=== PATIENT | male | born 1985 | race Caucasian/White ===

== ENCOUNTER → 2016-10-13 | Outpatient (CLI) | payer OTHER ==
[~2016-10-13] MED LIST: AMOXICILLIN PO; ANTIVERT12.5 MG PO; DIAZEPAM PO; DICLOFENAC PO; FIORICET1 TAB; FLEXERIL PO; FLEXERIL10 MG PO; IBUPROFEN PO; MEDROL4 MG/DOSE-; MEDROL4 MG/DOSE- PO; MUCINEX D ER T1 EACH PO; MUCINEX100 MG/5 M; NAPROXEN PO; NO MEDICATIONS; ROBITUSSIN ALL118 ML PO; SUDAFED PLUS PO; VICODIN 5/500 T1 TAB PO; VOLTAREN75 MG PO; ZOFRAN ODT4 MG; [UNRECOGNIZED DRUG - OTHER]
--- NOTE | ~2016-10-13 | CR58 ---
[facility]. [facility] A Service of [facility] & [facility] RADIOLOGY TEXT RESULTS PATIENT: FRANNY DOVER LOCATION: [facility] : 87 UNIT #: [id number] AGE: [address]: VELMA DOUGHERTY APRN SEX: M ORDER DR: [id number] [address] [address] [id number] O MR#: [id number] Acc #: [id number] NAME: FRANNY DOVER : 1985 SEX: M STUDY DATE/TIME: 10/13/2016 12:56 UNIT: [facility] ROOM: STUDY DESCRIPTION: CR Cervical Spine 2 or 3 Views Attending Physician: Velma Dougherty Aprn Referring Physician: Velma Dougherty Aprn Ordering Physician: Velma Dougherty Aprn Primary Care Physician: Maricarmen Witt M.D. MEDICAL IMAGING REPORT This report is preliminary unless electronic signature is present. EXAM Cervical spine 3 views INDICATIONS Shoulder pain and neck pain for 2 weeks. COMPARISON STUDIES No comparisons. FINDINGS Vertebral heights, alignment and disc spaces are maintained. The odontoid is intact and the lateral masses well aligned. IMPRESSION Negative. Dictated by... Mazin Seay M.D. THIS IS AN ELECTRONICALLY VERIFIED REPORT Mazin Seay M.D. at 10/15/2016 7:23 AM ARS/pcl TD: 10/13/2016 18:05 JOB #: [id number] MEDICAL IMAGING REPORT Page 1 of 1
--- NOTE | ~2016-10-13 | CR243 ---
[facility]. [facility] A Service of [facility] & [facility] RADIOLOGY TEXT RESULTS PATIENT: FRANNY DOVER LOCATION: [facility] : 86 UNIT #: [id number] AGE: [address]: VELMA DOUGHERTY APRN SEX: M ORDER DR: [id number] [address] [address] [id number] O MR#: [id number] Acc #: [id number] NAME: FRANNY DOVER : 1985 SEX: M STUDY DATE/TIME: 10/13/2016 12:56 UNIT: [facility] ROOM: STUDY DESCRIPTION: CR Thoracic Spine 3 Views Attending Physician: Velma Dougherty Aprn Referring Physician: Velma Dougherty Aprn Ordering Physician: Velma Dougherty Aprn Primary Care Physician: Maricarmen Witt M.D. MEDICAL IMAGING REPORT This report is preliminary unless electronic signature is present. EXAM Thoracic spine 3 views INDICATIONS Back pain for 2 weeks. COMPARISON STUDIES No comparisons. FINDINGS Vertebral body heights, alignment and disc spaces are preserved. IMPRESSION Negative. Dictated by... Mazin Seay M.D. THIS IS AN ELECTRONICALLY VERIFIED REPORT Mazin Seay M.D. at 10/15/2016 7:23 AM ARS/rené TD: 10/13/2016 18:03 JOB #: [id number] MEDICAL IMAGING REPORT Page 1 of 1
--- NOTE | ~2016-10-13 | CR230 ---
[facility]. [facility] A Service of [facility] & [facility] RADIOLOGY TEXT RESULTS PATIENT: FRANNY DOVER LOCATION: [facility] : 86 UNIT #: [id number] AGE: [address]: VELMA DOUGHERTY APRN SEX: M ORDER DR: [id number] O MR#: [id number] Acc #: [id number] NAME: FRANNY DOVER : 1985 SEX: M STUDY DATE/TIME: 10/13/2016 12:56 UNIT: [facility] ROOM: STUDY DESCRIPTION: CR Shoulder Min 2 View Rt Attending Physician: Velma Dougherty Aprn Referring Physician: Velma Dougherty Aprn Ordering Physician: Velma Dougherty Aprn Primary Care Physician: Maricarmen Witt M.D. MEDICAL IMAGING REPORT This report is preliminary unless electronic signature is present. EXAM Right shoulder 3 views INDICATIONS Right shoulder pain for 2 weeks. COMPARISON STUDIES No comparisons. FINDINGS Joint spaces preserved. No fracture or dislocation. IMPRESSION Negative. Dictated by... Mazin Seay M.D. THIS IS AN ELECTRONICALLY VERIFIED REPORT Mazin Seay M.D. at 10/15/2016 7:23 AM ARS/pcl TD: 10/13/2016 18:04 JOB #: [id number] MEDICAL IMAGING REPORT Page 1 of 1
== END | disposition home or self-care (01) ==
LOC: SRAD 12:37
DX: M54.2 Cervicalgia (principal); M54.6 Pain in thoracic spine; M25.511 Pain in right shoulder
CPT/HCPCS: 72040; 72072; 73030

== ENCOUNTER → 2016-11-10 | Outpatient (CLI) | payer OTHER ==
--- NOTE | ~2016-11-10 | MR32 ---
[facility] A Service of [facility] & [facility] RADIOLOGY TEXT RESULTS PATIENT: FRANNY DOVER LOCATION: [facility] : 87 UNIT #: [id number] AGE: [address]: Saw Guerrero MD SEX: M ORDER DR: [id number] [facility] [address] [place], [place] [address] [id number] O MR#: [id number] Acc #: [id number] NAME: FRANNY DOVER : 1985 SEX: M STUDY DATE/TIME: 11/10/2016 18:48 UNIT: [facility] ROOM: STUDY DESCRIPTION: MR Cervical Wo Contrast Attending Physician: Saw Guerrero M.D. Referring Physician: Saw Guerrero M.D. Ordering Physician: Saw Guerrero M.D. Primary Care Physician: Velma Montenegro Aprn MRI CENTER REPORT This report is preliminary unless electronic signature is present. EXAM Cervical MRI. HISTORY Neck pain radiating into the left arm and hand with numbness beginning early September 2016. TECHNIQUE Multiplanar imaging of the cervical spine was performed with short and long TR. FINDINGS Alignment is satisfactory. At C3-4, there is central disc protrusion that contacts the ventral cord in the midline. Central stenosis is moderate. The other cervical discs are normal. There is a short segment central cord syrinx at C7. Maximum diameter of the syrinx is about 2 mm. It extends over a length of 1.5 cm. It is likely incidental, however, should be further worked up with postcontrast imaging to make sure there is no evidence of adjacent cord enhancement. No paraspinous masses are seen. No marrow edema is noted. IMPRESSION 1. Mild midcervical degenerative disc disease with a small central disc protrusion at C3-4 causing moderate canal narrowing and contacting the ventral cord at the midline. 2. No evidence of a discrete disc herniation and no exiting nerve root compression is seen. 3. Small central cord syrinx at C7. Recommend the patient return for postcontrast imaging to evaluate for enhancing lesions in the cord associated with the syrinx. It is likely an incidental asymptomatic cord syrinx. [facility]. [facility] A Service of [facility] & [facility] RADIOLOGY TEXT RESULTS PATIENT: FRANNY DOVER LOC[facility]: [facility] : 86 UNIT #: [id number] AGE: [address]: Saw Guerrero MD SEX: M ORDER DR: Dictated by... George Georges M.D. THIS IS AN ELECTRONICALLY VERIFIED REPORT George Georges M.D. at 11/11/2016 4:10 PM LESLI/madi TD: 11/11/2016 11:33 JOB #: [id number] MRI CENTER REPORT Page 1 of 1 COPY
== END | disposition home or self-care (01) ==
LOC: CMRI 16:52
DX: M54.2 Cervicalgia (principal); M50.320 Other cervical disc degeneration, mid-cervical region, unspecified level; M50.21 Other cervical disc displacement, high cervical region; M99.81 Other biomechanical lesions of cervical region
CPT/HCPCS: 72141

== ENCOUNTER → 2017-01-12 | Outpatient (CLI) | payer OTHER ==
--- NOTE | ~2017-01-12 | MR31 ---
[facility] A Service of [facility] & [facility] RADIOLOGY TEXT RESULTS PATIENT: FRANNY DOVER LOCATION: [facility] : 87 UNIT #: [id number] AGE: [address]: Miguel Angel Ortega MD SEX: M ORDER DR: [id number] [place], [place] [address] [id number] O MR#: [id number] Acc #: [id number] NAME: FRANNY DOVER : 1985 SEX: M STUDY DATE/TIME: 01/12/2017 16:23 UNIT: [facility] ROOM: STUDY DESCRIPTION: MR Cervical WWo Contrast Attending Physician: Miguel Angel Ortega M.D. Referring Physician: Miguel Angel Ortega M.D. Ordering Physician: Miguel Angel Ortega M.D. Primary Care Physician: Velma Montenegro Aprn MRI CENTER REPORT This report is preliminary unless electronic signature is present. EXAM Cervical spine MRI with and without contrast HISTORY Known cervical syrinx, persistent neck and left arm pain since September 2016. COMPARISON Prior cervical spine MRI October 2016. FINDINGS Redemonstrated thin syrinx cavity standing behind the C7 vertebral body. It is 1-2 mm in maximal diameter and about 1.3 cm in maximal craniocaudal dimension. It is unchanged in appearance since the prior study. Postcontrast images show no abnormal enhancement either in or around the syrinx or elsewhere in the spinal canal, spinal column or adjacent structures. At C2-3 the canal and foramina are normal. At C3-4 there is a central disc protrusion with mild cord compression, also unchanged since the prior study. There is no abnormal cord signal. There is mild left and no right foraminal stenosis. At 4-5 and 5-6 the canal and foramina are within normal limits. At 6-7 and 7-1, the canal and foramina are within normal limits. IMPRESSION 1. Stable redemonstrated small syrinx cavity behind the C7 vertebral body 1 to 2 mm in maximal dimension without associated abnormal enhancement. [facility] A Service of [facility] & [facility] RADIOLOGY TEXT RESULTS PATIENT: FRANNY DOVER LOCATION: [facility] : 86 UNIT #: [id number] AGE: [address]: Miguel Angel Ortega MD SEX: M ORDER DR: 2. Degenerative change at 3-4 with central disc protrusion contacting and deforming the ventral cord but no abnormal cord signal. There is some left foraminal narrowing at 3-4 also unchanged. Overall the exam again is stable when compared to the study of 11/10/2016. Dictated by... Miguel Angel Sandhu M.D. THIS IS AN ELECTRONICALLY VERIFIED REPORT Miguel Angel Sandhu M.D. at 01/16/2017 4:52 PM JOSUÉ/celeste TD: 01/13/2017 11:16 JOB #: [id number] MRI CENTER REPORT Page 1 of 1 COPY
--- NOTE | ~2017-01-12 | MR112 ---
[facility] A Service of [facility] & [facility] RADIOLOGY TEXT RESULTS PATIENT: FRANNY DOVER LOCATION: [facility] : 87 UNIT #: [id number] AGE: [address]: Miguel Angel Ortega MD SEX: M ORDER DR: [id number] [facility] [address] [place], [place] [address] [id number] O MR#: [id number] Acc #: [id number] NAME: FRANNY DOVER : 1985 SEX: M STUDY DATE/TIME: 01/12/2017 17:01 UNIT: [facility] ROOM: STUDY DESCRIPTION: MR Lumbar WWo Contrast Attending Physician: Miguel Angel Ortega M.D. Referring Physician: Miguel Angel Oretga M.D. Ordering Physician: Miguel Angel Ortega M.D. Primary Care Physician: Velma Montenegro Aprn MRI CENTER REPORT This report is preliminary unless electronic signature is present. EXAM Lumbar spine MRI with and without contrast HISTORY Newly diagnosed cervical syrinx and patient complains of left arm pain and numbness and neck pain. FINDINGS Spine alignment is normal. Bone marrow signal is normal. The distal cord and conus are normal in position and appearance and the paraspinous soft tissues are normal. There is no canal stenosis at any level. There is borderline right foraminal narrowing at L4-5 due to slight disc bulge but no other foraminal compromise, and there is borderline left foraminal narrowing at L4-5 but no other foraminal compromise. IMPRESSION 1. Slight disc bulge at L4-5 with borderline bilateral foraminal narrowing and no canal stenosis. 2. No other appreciable canal or foraminal narrowing at any level. No abnormal enhancement. Distal cord and tip of the conus normal in position and appearance. The exam is otherwise unremarkable. Dictated by... Miguel Angel Sandhu M.D. THIS IS AN ELECTRONICALLY VERIFIED REPORT Miguel Angel Sandhu M.D. at 01/16/2017 4:52 PM JOSUÉ/brandie TD: 01/13/2017 11:40 JOB #: [id number] [facility] A Service of [facility] & [facility] RADIOLOGY TEXT RESULTS PATIENT: FRANNY DOVER [facility] UNIT #: [id number] AGE: [address]: Miguel Angel Ortega MD SEX: M ORDER DR: MRI CENTER REPORT Page 1 of 1 COPY
--- NOTE | ~2017-01-12 | MR175 ---
[facility] A Service of [facility] & [facility] RADIOLOGY TEXT RESULTS PATIENT: FRANNY DOVER LOCATION: [facility] : 87 UNIT #: [id number] AGE: [address]: Miguel Angel Ortega MD SEX: M ORDER DR: [id number] [facility] [address] [place], [place] [address] [id number] O MR#: [id number] Acc #: [id number] NAME: FRANNY DOVER : 1985 SEX: M STUDY DATE/TIME: 01/12/2017 16:41 UNIT: [facility] ROOM: STUDY DESCRIPTION: MR Thoracic WWo Contrast Attending Physician: Miguel Angel Ortega M.D. Referring Physician: Miguel Angel Ortega M.D. Ordering Physician: Miguel Angel Ortega M.D. Primary Care Physician: Velma Montenegro Aprn MRI CENTER REPORT This report is preliminary unless electronic signature is present. EXAM Thoracic spine MR with and without contrast, 01/12/2017 HISTORY Known cervical syrinx. Neck and left arm pain and numbness since September 2016. FINDINGS Thoracic spine alignment is normal and bone marrow signal is normal and cord signal is normal. There is no evidence of thoracic syrinx. There is mild discogenic change detailed below, but no more than minimal canal narrowing is seen at any level. Postcontrast images show no abnormal enhancement within the cord, spinal canal or spinal column or paraspinous soft tissues. Small disc protrusions are seen at 6-7, 7-8, 8-9 and 9-10 but only slightly contacting the cord, without substantial cord deformity and certainly no cord compression or abnormal signal. The exam is otherwise unremarkable. IMPRESSION 1. No abnormal signal in the thoracic cord. No thoracic syrinx and no abnormal enhancement. 2. Small disc protrusions at 6-7, 7-8, 8-9 and 9-10 cause very slight narrowing of the canal and slight cord displacement but no true canal stenosis or cord compression. Otherwise negative thoracic spine MR with and without contrast. Dictated by... Miguel Angel E. Sandhu, M.D. THIS IS AN ELECTRONICALLY VERIFIED REPORT Miguel Angel Sandhu M.D. at 01/16/2017 4:52 PM OJSUÉ/brandie [facility] A Service of [facility] & [facility] RADIOLOGY TEXT RESULTS PATIENT: FRANNY DOVER [facility] : 86 UNIT #: [id number] AGE: [address]: Miguel Angel Ortega MD SEX: M ORDER DR: TD: 01/13/2017 11:29 JOB #: [id number] MRI CENTER REPORT Page 1 of 1 COPY
== END | disposition home or self-care (01) ==
LOC: CMRI 15:35
DX: G95.0 Syringomyelia and syringobulbia (principal); M47.892 Other spondylosis, cervical region; M50.21 Other cervical disc displacement, high cervical region; M99.81 Other biomechanical lesions of cervical region; M51.24 Other intervertebral disc displacement, thoracic region; M51.86 Other intervertebral disc disorders, lumbar region; M99.83 Other biomechanical lesions of lumbar region
CPT/HCPCS: 72156; 72157; 72158; A9577

== ENCOUNTER 2017-01-30 17:24 | Emergency (ER) | payer OTHER ==
[2017-01-30] MEDS ORDERED: NO MEDICATIONS (17:36)
== END 2017-01-30 19:52 | disposition home or self-care (01) ==
LOC: SED 17:24
DX: S61.213A Laceration without foreign body of left middle finger without damage to nail, initial encounter (principal); F17.210 Nicotine dependence, cigarettes, uncomplicated; W45.8XXA Other foreign body or object entering through skin, initial encounter; Y92.009 Unspecified place in unspecified non-institutional (private) residence as the place of occurrence of the external cause
CPT/HCPCS: 99283